=== PATIENT | female | born 1995 ===

== ENCOUNTER 2021-02-19 08:48 | Inpatient (IN) ==
[2021-02-19] MEDS: CLINDAMYCIN INJ 900 MG/50 ML PREMIX IV SCH ×2 (11:56→18:49)
[2021-02-19] MEDS: cefTRIAXone 1,000 MG in SODIUM CHLORIDE 0.9% 100 ML IV SCH (12:59)
[2021-02-19 13:42] LABS: Basophils % 0.2 % (0.0-0.8); Eosinophils % 0.2 % (0.00-10.9); Hematocrit 34.5 VOL% (35.7-47.0); Hemoglobin 11.3 GM/DL (12.0-16.0); Immature Granulocytes Absolute 0.24 #; Lymphocytes # 1.5 10*3/uL (1.4-4.0); Lymphocytes % 12.7 % (21.3-54.2); Mean Corpuscular HGB Conc 32.8 GM/DL (32-36); Mean Corpuscular Volume 88.2 FL (87-102); Mean Platelet Volume 9.1 FL (9.6-12.0); Monocytes % 9.7 % (1.7-12.7); Neutrophils % 75.2 % (38.7-73.9); Platelet Count 384 T/CUMM (130-400); Red Blood Count 3.91 MC/CUMM (3.8-5.5); Red Cell Distribution Width 12.7 % (9.3-17.3); White Blood Count 12.2 T/CUMM (4-12)
[2021-02-19 14:09] LABS: Albumin 1.9 G/DL (3.4-5.0); Bilirubin,Total 0.7 MG/DL (0.2-1.0); Calcium 8.7 MG/DL (8.5-10.1); Potassium 3.4 MMOL/L (3.5-5.1)
[2021-02-19] MEDS: POTASSIUM CHLORIDE 20 MEQ TABLET PO PRN ×4 (16:15→22:20)
[2021-02-19] MEDS: oxyCODONE/ACETAMINOPHEN 5-325 MG TABLET PO PRN (17:56)
[2021-02-19] MEDS: IBUPROFEN 800 MG TABLET PO PRN (17:57)
[2021-02-19] MEDS: LACTATED RINGERS 1,000 ML IV SCH (20:30)
[2021-02-20] MEDS: CLINDAMYCIN INJ 900 MG/50 ML PREMIX IV SCH ×3 (04:20→21:03)
[2021-02-20] MEDS: IBUPROFEN 800 MG TABLET PO PRN ×3 (04:35→21:26)
[2021-02-20] MEDS: oxyCODONE/ACETAMINOPHEN 5-325 MG TABLET PO PRN ×3 (04:35→21:26)
[2021-02-20] MEDS: LACTATED RINGERS 1,000 ML IV SCH ×3 (04:36→23:29)
[2021-02-20] MEDS: cefTRIAXone 1,000 MG in SODIUM CHLORIDE 0.9% 100 ML IV SCH (11:40)
[2021-02-21] MEDS: CLINDAMYCIN INJ 900 MG/50 ML PREMIX IV SCH (05:10)
[2021-02-21] MEDS: LACTATED RINGERS 1,000 ML IV SCH (07:38)
[2021-02-21] MEDS: IBUPROFEN 800 MG TABLET PO PRN ×2 (11:03→22:17)
[2021-02-21] MEDS: SODIUM HYPOCHLORITE 0.25% IRRIG 473 ML BOTTLE TOP SCH (11:03)
[2021-02-21] MEDS: oxyCODONE/ACETAMINOPHEN 5-325 MG TABLET PO PRN ×2 (11:03→22:17)
[2021-02-21] MEDS: cefTRIAXone 1,000 MG in SODIUM CHLORIDE 0.9% 100 ML IV SCH (11:17)
[2021-02-22] MEDS: IBUPROFEN 800 MG TABLET PO PRN (05:07)
[2021-02-22] MEDS: oxyCODONE/ACETAMINOPHEN 5-325 MG TABLET PO PRN (05:07)
[2021-02-22 09:43] VITALS: BP 118/74
[2021-02-22] MEDS ORDERED: IBUPROFEN 800 MG TABLET PO ONE (11:24)
[2021-02-22] MEDS ORDERED: oxyCODONE/ACETAMINOPHEN 5-325 MG TABLET PO ONE (11:24)
[2021-02-22] MEDS: SODIUM HYPOCHLORITE 0.25% IRRIG 473 ML BOTTLE TOP SCH (12:30)
[2021-02-22] MEDS: cefTRIAXone 1,000 MG in SODIUM CHLORIDE 0.9% 100 ML IV SCH (12:31)
== END 2021-02-22 14:45 | disposition home health service (06) | DRG 776 ==
LOC: N.OB
PROVIDERS: ADMIT Obstetrics & Gynecology; ATTEND Obstetrics & Gynecology